=== PATIENT | female | born 1950 | race Caucasian/White ===

== ENCOUNTER 2025-06-27 15:42 | Inpatient (IN) | payer MEDICARE, MEDICAID ==
[2025-06-27] VITALS (12 sets, daily range): BP systolic 118–152; BP diastolic 54–64; PULSE 85–111; RESP 13–21; TEMP 36.4736; O2SAT 98–100
[~2025-06-27] VITALS: Ht 154.9 cm; Wt 77.6 kg
[2025-06-27] MEDS: ACETAMINOPHEN 1000MG/100ML 100 ML IV ONE (16:00)
[2025-06-27] MEDS: SODIUM CHLORIDE 0.9% (SEPSIS BOLUS) IV ONE (16:15)
[2025-06-27] MEDS: PIPERACILLIN/TAZO 3.375G/50ML 50 ML IV ONE (16:20)
[2025-06-27 16:31] LABS: HEMATOCRIT. 26.4 % (36.0-48.0); HEMOGLOBIN. 8.7 g/dL (12.0-16.0); MEAN PLATELET VOLUME 7.8 fl (7.4-10.4); PLATELET 406 x1000/uL (130-400); RED BLOOD CELL COUNT 3.07 mill/uL (4.2-5.4); RED CELL DISTRIBUTION WIDTH 16.8 % (11.6-14.6)
[2025-06-27 16:40] LABS: INR 1.1
[2025-06-27 16:43] LABS: CREATININE 1.2 mg/dL (0.6-1.0); UREA NITROGEN BLOOD 30 mg/dL (9-23)
[2025-06-27 16:44] LABS: ETHANOL BLOOD < 10 mg/dL (<10); TROPONIN I HIGH SENSITIVITY 4 ng/L (3.0-34)
[2025-06-27 16:45] LABS: ASPARTATE AMINOTRANSFERASE 25 IU/L (<34); BILIRUBIN DIRECT 0.2 mg/dL (<=3.0); BILIRUBIN TOTAL 0.5 mg/dL (0.1-1.0); PROTEIN TOTAL 7.8 g/dL (6.0-8.3)
[2025-06-27] MEDS ORDERED: DEXTROSE 50% WATER 50ML SYRINGE IV PRN (18:00)
[2025-06-27] MEDS ORDERED: VANCOMYCIN 1.5GM/250ML IV SCH (18:00)
[2025-06-27 18:12] LABS: PHOSPHORUS 1.9 mg/dL (2.5-4.9)
[2025-06-27 18:19] LABS: VITAMIN B12 SERUM 444 pg/mL (211-911)
[2025-06-27] MEDS ORDERED: CLINDAMYCIN 900 MG in DEXTROSE 5% WATER 50 ML IV SCH (18:30)
[2025-06-27] MEDS: MIDODRINE HCL 5MG TABLET PO SCH (18:32)
[2025-06-27 18:36] LABS: CLARITY URINE CLEAR (CLEAR); GLUCOSE URINE 3+ (NEGATIVE); KETONES URINE NEGATIVE (NEGATIVE); LEUKOCYTE ESTERASE URINE NEGATIVE (NEGATIVE); NITRITE URINE NEGATIVE (NEGATIVE); OCCULT BLOOD URINE TRACE (NEGATIVE); PH URINE 5.5 (4.5-8.0); PROTEIN URINE 2+ (NEGATIVE); SPECIFIC GRAVITY URINE 1.024 (1.005-1.030); UROBILINOGEN URINE 0.2 E.U./dL (0.2-1.0)
[2025-06-27 18:43] LABS: BG BASE EXCESS -1.5 mmol/L (-2.0-3.0); BG CARBOXYHEMOGLOBIN 0.8 % (0.5-1.5); BG DEOXYHEMOGLOBIN 6.1 % (0.0-5.0); BG FRACTION INSPIRED OXYGEN 21; BG HCO3 ACT 21.5 mmol/L (21.0-28.0); BG METHEMOGLOBIN 0.3 % (0.5-1.5); BG OXYGEN SATURATION 93.8 % (94.0-98.0); BG OXYHEMOGLOBIN 92.8 % (94.0-98.0); BG PCO2 29.7 mmHg (32.0-45.0); BG PH 7.478 (7.350-7.450); BG PO2 66.5 mmHg (83.0-108.0); BG SAMPLE SITE RIGHT RADIAL; BG TOTAL HEMOGLOBIN 8.8 g/dL (12.0-16.0); BG VENT MODE ROOM AIR
[2025-06-27 18:45] LABS: *AMPHETAMINES SCREEN URINE NEGATIVE (NEGATIVE); *BARBITURATES SCREEN URINE NEGATIVE (NEGATIVE); *BENZODIAZEPINES SCREEN URINE NEGATIVE (NEGATIVE); *COCAINE SCREEN URINE NEGATIVE (NEGATIVE); CANNABINOID URINE SCREEN NEGATIVE (NEGATIVE); ECSTASY MDMA SCREEN URINE NEGATIVE (NEGATIVE); METHADONE URINE SCREEN NEGATIVE (NEGATIVE); OPIATES URINE SCREEN NEGATIVE (NEGATIVE); PHENCYCLIDINE URINE SCREEN NEGATIVE (NEGATIVE)
[2025-06-27] MEDS: ALBUMIN HUMAN 12.5G/250ML (5%) IV SCH (18:45)
[2025-06-27] MEDS: VANCOMYCIN 1.25GM/250ML IV SCH (18:45)
[2025-06-27] MEDS ORDERED: MAGNESIUM/ALUMINUM HYDROXIDE/SIMETHICONE 30ML UDC PO PRN (18:45)
[2025-06-27] MEDS ORDERED: GUAIFENESIN 200MG/10ML SUGAR FREE UDC PO PRN (18:45)
[2025-06-27] MEDS ORDERED: ACETAMINOPHEN 325MG TABLET PO PRN (18:45)
[2025-06-27] MEDS ORDERED: ONDANSETRON HCL 4MG/2ML INJ IV PRN (18:45)
[2025-06-27] MEDS ORDERED: IPRATROPIUM/ALBUTEROL 0.5-3(2.5)MG/3ML NEB HHN PRN (18:45)
[2025-06-27] MEDS: MAGNESIUM 2 G PREMIX 50 ML IV SCH (18:52)
[2025-06-27] MEDS: INSULIN LISPRO 100 UNITS/ML SUBCUT SCH ×2 (18:53→22:24)
[2025-06-27 18:58] LABS: BAND% 11.0 % (1.0-6.0); LYMPHOCYTES % MANUAL 3.0 % (20.0-60.0); MONOCYTES % MANUAL 4.0 % (2.0-8.0); NEUTROPHILS % MANUAL 82.0 % (45.0-75.0); PLATELET ESTIMATE SLIGHTLY INCREASED
[2025-06-27 19:00] LABS: COLOR URINE STRAW (YELLOW)
[2025-06-27] MEDS ORDERED: SODIUM PHOSPHATE 15 MMOL in DEXT 5% WATER 245 ML IV SCH (19:00)
[2025-06-27 19:01] LABS: RBC URINE 0-2 /hpf (0-2); WBC URINE 0-2 /hpf (0-2)
[2025-06-27 19:02] LABS: BACTERIA URINE NONE SEEN; MUCUS URINE TRACE /lpf (< = 2+); SQUAMOUS EPITHELIAL CELL URINE RARE /lpf (RARE/1+)
[2025-06-27] MEDS: LACTATED RINGERS 1,000 ML IV SCH (19:14)
[2025-06-27] MEDS ORDERED: VASOPRESSIN 20 UNIT in SODIUM CHLORIDE 0.9% 99 ML IV PRN (19:30)
[2025-06-27] MEDS: NOREPINEPHRINE 8MG/250ML PMX 250 ML IV PRN (19:38)
[2025-06-27 20:31] LABS: FOLIC ACID (FOLATE) SERUM > 20.00 ng/mL (>5.38)
[2025-06-27] MEDS: BLOOD SUGAR DIAGNOSTIC STRIP TEST SCH (21:00)
[2025-06-27] MEDS: ENOXAPARIN 40MG/0.4ML SYR SUBCUT SCH (22:23)
[2025-06-27] MEDS: PIPERACILLIN/TAZO 3.375G/50ML 50 ML IV SCH (22:23)
[2025-06-27 22:35] LABS: TROPONIN I HIGH SENSITIVITY 72 ng/L (3.0-34)
[2025-06-28] VITALS (95 sets, daily range): BP systolic 71–152; BP diastolic 36–125; PULSE 71–93; RESP 13–33; TEMP 36.2–36.9; O2SAT 84–100
[2025-06-28] MEDS: CLINDAMYCIN 900MG PREMIX 50 ML IV SCH (02:27)
[2025-06-28 05:01] LABS: HEMATOCRIT. 25.1 % (36.0-48.0); HEMOGLOBIN. 8.2 g/dL (12.0-16.0); MEAN PLATELET VOLUME 7.8 fl (7.4-10.4); PLATELET 387 x1000/uL (130-400); RED BLOOD CELL COUNT 2.86 mill/uL (4.2-5.4); RED CELL DISTRIBUTION WIDTH 16.7 % (11.6-14.6)
[2025-06-28 05:29] LABS: CREATININE 1.1 mg/dL (0.6-1.0); TRIGLYCERIDE 140 mg/dL (0-150); UREA NITROGEN BLOOD 23 mg/dL (9-23)
[2025-06-28 05:30] LABS: LDL CHOLESTEROL 20 mg/dL (5-100)
[2025-06-28 05:35] LABS: T4 FREE 1.14 ng/dL (0.89-1.76)
[2025-06-28] MEDS: DOCUSATE SODIUM 100MG CAPSULE PO PRN (05:40)
[2025-06-28 05:43] LABS: TROPONIN I HIGH SENSITIVITY 665 ng/L (3.0-34)
[2025-06-28] MEDS: ACETAMINOPHEN 325MG TABLET PO PRN (08:42)
[2025-06-28] MEDS: PANTOPRAZOLE SODIUM 40 MG/VIAL IV SCH (08:42)
[2025-06-28] MEDS: MULTIVITAMINS,THER W-MINERALS TABLET PO SCH (08:48)
[2025-06-28 09:03] LABS: BAND% 10.0 % (1.0-6.0); LYMPHOCYTES % MANUAL 8.0 % (20.0-60.0); MONOCYTES % MANUAL 8.0 % (2.0-8.0); NEUTROPHILS % MANUAL 74.0 % (45.0-75.0)
[2025-06-28 09:05] LABS: PLATELET ESTIMATE NORMAL
[2025-06-28] MEDS: VANCOMYCIN 750MG/150ML (BAXTER) IV SCH (17:38)
[2025-06-28] MEDS: INSULIN GLARGINE 100 UNITS/ML SUBCUT SCH (21:39)
[2025-06-29] VITALS (32 sets, daily range): BP systolic 115–152; BP diastolic 48–69; PULSE 71–93; RESP 12–28; TEMP 35.6–37.2; O2SAT 96–100
[2025-06-29 01:24] LABS: TROPONIN I HIGH SENSITIVITY 688 ng/L (3.0-34)
[2025-06-29 06:11] LABS: BASOPHILS % 0.7 % (0.0-2.0); EOSINOPHILS % 2.3 % (0.0-5.0); HEMATOCRIT. 24.7 % (36.0-48.0); HEMOGLOBIN. 8.1 g/dL (12.0-16.0); LYMPHOCYTES % 11.9 % (20.0-50.0); MEAN PLATELET VOLUME 8.3 fl (7.4-10.4); MONOCYTES % 8.0 % (2.0-8.0); NEUTROPHILS % 77.1 % (40.0-76.0); PLATELET 359 x1000/uL (130-400); RED BLOOD CELL COUNT 2.87 mill/uL (4.2-5.4); RED CELL DISTRIBUTION WIDTH 16.8 % (11.6-14.6)
[2025-06-29 06:27] LABS: CREATININE 1.0 mg/dL (0.6-1.0); UREA NITROGEN BLOOD 17.0 mg/dL (9-23)
[2025-06-29 06:53] LABS: TROPONIN I HIGH SENSITIVITY 691 ng/L (3.0-34)
[2025-06-29] MEDS ORDERED: INSULIN GLARGINE 100 UNITS/ML SUBCUT SCH (10:00)
[2025-06-29] MEDS: SODIUM HYPOCHLORITE 0.125% 473ML SOLUTION TOP SCH (13:19)
[2025-06-29] MEDS: INSULIN LISPRO 100 UNITS/ML SUBCUT SCH (17:36)
[2025-06-29] MEDS: VANCOMYCIN 1.25GM/250ML 250 ML IV SCH (17:36)
[2025-06-29 22:27] LABS: CREATINE KINASE MB FRACTION 0.9 ng/mL (0.5-3.6)
[2025-06-29 22:32] LABS: TROPONIN I HIGH SENSITIVITY 384.0 ng/L (3.0-34)
[2025-06-30] VITALS (7 sets, daily range): BP systolic 109–164; BP diastolic 43–60; PULSE 70–87; RESP 16–20; TEMP 36.1–36.7; O2SAT 96–100
[2025-06-30 07:30] LABS: PLATELET 365 x1000/uL (130-400); RED BLOOD CELL COUNT 2.76 mill/uL (4.2-5.4); RED CELL DISTRIBUTION WIDTH 16.4 % (11.6-14.6)
[2025-06-30 07:50] LABS: CREATININE 1.1 mg/dL (0.6-1.0)
[2025-06-30 07:51] LABS: UREA NITROGEN BLOOD 16 mg/dL (9-23)
[2025-06-30 07:54] LABS: PHOSPHORUS 3.2 mg/dL (2.5-4.9)
[2025-06-30] MEDS ORDERED: CLIN-194 MT (12:42)
[2025-06-30] MEDS ORDERED: INSLIS SUBCUT (12:42)
[2025-06-30] MEDS ORDERED: LANTUSUD SUBCUT (12:42)
[2025-06-30] MEDS: CLONIDINE 0.1MG TABLET PO PRN (21:08)
== END 2025-06-30 22:50 | disposition home health service (06) | DRG 564 ==
LOC: ER 15:42 → MICUSO 17:15 → EDBEDREQ 17:17 → EDBEDREQTM 17:17 → ENRESERV 17:26 → CANRESERV 17:26 → EDBEDREQSVC 19:46 → ENRESERV 20:05 → 7WST 06-29 16:41
PROVIDERS: ADMIT Hospitalist; ATTEND Hospitalist
DX: T87.44 Infection of amputation stump, left lower extremity (principal); A41.9 Sepsis, unspecified organism; G92.8 Other toxic encephalopathy; I21.4 Non-ST elevation (NSTEMI) myocardial infarction; L03.116 Cellulitis of left lower limb; E87.20 Acidosis, unspecified; E11.52 Type 2 diabetes mellitus with diabetic peripheral angiopathy with gangrene; E83.42 Hypomagnesemia; E83.39 Other disorders of phosphorus metabolism; E11.65 Type 2 diabetes mellitus with hyperglycemia; D75.839 Thrombocytosis, unspecified; N18.9 Chronic kidney disease, unspecified; E11.22 Type 2 diabetes mellitus with diabetic chronic kidney disease; E11.40 Type 2 diabetes mellitus with diabetic neuropathy, unspecified; D64.9 Anemia, unspecified; I50.9 Heart failure, unspecified; Z79.4 Long term (current) use of insulin; Z86.73 Personal history of transient ischemic attack (TIA), and cerebral infarction without residual deficits; Z87.440 Personal history of urinary (tract) infections; Z89.511 Acquired absence of right leg below knee; Z79.899 Other long term (current) drug therapy
CPT/HCPCS: 36415; 36600; 71045; 73590; 73721; 80048; 80061; 80076; 80202; 80305; 80320; 81003; 82375; 82550; 82553; 82607; 82728; 82746; 82805; 82962; 83036; 83540; 83550; 83605; 83735; 83880; 84100; 84145; 84439; 84443; 84484; 85025; 85027; 85044; 85651; 87070; 87077; 87106; 87186; 93005; 93922; 97162; 97530; 99291; A4606; J1650; J1815; J2470; J2543; J3373; J3475; J3490; J7030; J7060; J7120; P9041; G0480; J0131